=== PATIENT | male | born 1955 ===

== ENCOUNTER 2022-03-15 11:45 | Inpatient (IN) | payer OTHER ==
[~2022-03-15] VITALS: Ht 175.3 cm; Wt 81.6 kg
[2022-03-22] MEDS ORDERED: FLONASE16 GM (13:48)
[2022-03-22] MEDS ORDERED: FENOFIBRATE67 MG (13:48)
== END 2022-03-24 18:46 | disposition home or self-care (01) | DRG 470 ==
LOC: SURG 03-22 07:29 → O/R 03-22 07:29 → SURG 03-22 10:45
PROVIDERS: ADMIT Orthopaedic Surgery; ATTEND Orthopaedic Surgery
PROC: 0SRC0J9 Replacement of Right Knee Joint with Synthetic Substitute, Cemented, Open Approach (ICD-10-PCS; principal; 2022-03-22 10:45)
DX: M17.11 Unilateral primary osteoarthritis, right knee (principal); D62 Acute posthemorrhagic anemia; M85.662 Other cyst of bone, left lower leg; Z96.652 Presence of left artificial knee joint; Z20.822 Contact with and (suspected) exposure to COVID-19